=== PATIENT | male | born 1975 | race Caucasian/White ===

== ENCOUNTER 2019-04-16 15:35 | Emergency (ER) | payer OTHER ==
[2019-04-16] MEDS ORDERED: ONDANSETRON 4 MG TAB.RAPDIS PO ONE (16:26)
[2019-04-16] MEDS ORDERED: ACETAMINOPHEN 325 MG TABLET PO ONE (16:26)
[2019-04-16 17:29] LABS: A TYPE INFLUENZA AG NEGATIVE (NEGATIVE); B INFLUENZA AG NEGATIVE (NEGATIVE)
--- NOTE | 2019-04-16 18:49 | ER Document Report ---
HPI - HPI Time Seen by Provider: 04/16/19 16:22 Pain Level: Denies Notes: [id number]-stem-pjc male presents the ED with complaints of sore throat, chills, nausea, headache, myalgias started approximately 2 days ago. Worse with time, nothing makes better. Patient states he had negative flu shot this year. Has not tried any pwwu-tgo-pxixfly medications. Denies chest pain,palpitations, shortness of breath, dyspnea, , vomiting, diarrhea, abdominal pain, hematuria,blurred vision, double vision, loss of vision, speech changes, LH, dizziness, syncope, wheezing, neck pain,rash. - REPRODUCTIVE Reproductive: DENIES: : Past Medical History - General Information source: Patient - Social History Smoking Status: Unknown if Ever Smoked Family History: Reviewed & Not Pertinent Patient has suicidal ideation: No Patient has homicidal ideation: No Past Surgical History: Reports: Hx Orthopedic Surgery - right wrist - Immunizations Immunizations up to date: Yes Hx Diphtheria, Pertussis, Tetanus Vaccination: Yes Vertical Provider Document - CONSTITUTIONAL Agree With Documented VS: Yes Exam Limitations: No Limitations General Appearance: WD/WN Notes: PHYSICAL EXAMINATION:reviewed vital signs by RN GENERAL: Well-appearing, well-nourished and in no acute distress. HEAD: Atraumatic, normocephalic. EYES: Pupils equal round and reactive to light, extraocular movements intact, sclera anicteric, conjunctiva are normal. ENT: Nares patent, oropharynx with erythema and exudates. Moist mucous membranes. NECK: Normal range of motion, supple without lymphadenopathy LUNGS: Breath sounds clear to auscultation bilaterally and equal. No wheezes rales or rhonchi. HEART: Regular rate and rhythm without murmurs ABDOMEN: Soft, nontender, nondistended abdomen. No guarding, no rebound. No masses appreciated. Musculoskeletal: Normal range of motion, no pitting or edema. No cyanosis. NEUROLOGICAL: Cranial nerves grossly intact. Normal speech, normal gait. Normal sensory, motor exams PSYCH: Normal mood, normal affect. SKIN: Warm, Dry, normal turgor, no rashes or lesions noted. - INFECTION CONTROL TRAVEL OUTSIDE OF THE [place] IN LAST 30 DAYS: No Course - Re-evaluation Re-evalutation: 04/16/19 19:05 Presentation of several days of sore throat in an otherwise well-appearing patient. Rapid strep is negative, but clinical examination shows erythema with exudates and pharynx as well as symptomatic for exudative pharyngitis. history and exam are not consistent with a retropharyngeal abscess or peritonsillar abscess. Airway is patent. No difficulty handling oral secretions. Vitals within normal limits. Patient has been treated with an IM dose of penicillin. At this time will discharge with return precautions and follow-up recommendations. Verbal discharge instructions given a the bedside and opportunity for questions given. Medication warnings reviewed. Patient is in agreement with this plan and has verbalized understanding of return precautions and the need for primary care follow-up in the next 24-48 hours - Vital Signs Vital signs: Temp Pulse Resp BP Pulse Ox 98.8 F 98 16 150/95 H 99 04/16/19 15:39 04/16/19 15:39 04/16/19 15:39 04/16/19 15:39 04/16/19 15:39 Discharge - Discharge Clinical Impression: Exudative pharyngitis, Nausea Condition: Stable Disposition: HOME, SELF-CARE Instructions: Penicillin V K ([facility]), Strep Throat ([facility]), Sore Throat ([facility]) Additional Instructions: Continue toothbrush after 2 days do not reinfect himself, take medication as directed, increase oral hydration wash hands regularly. Do not share any utensils or cups with family members. Patient were to eat food prior to taking antibiotics can cause upset stomach. Yogurt daily to prevent loose stool. Return immediately for any new or worsening symptoms. Follow up with primary care provider, call tomorrow to make followup appointment. Prescriptions: Penicillin V Potassium [Penicillin Vk 500 mg Tablet] 500 mg PO BID #20 tablet Ondansetron [Zofran Odt 4 mg Tablet] 1 - 2 tab PO Q4H PRN #15 tab.rapdis PRN Reason: For Nausea/Vomiting Forms: Return to Work Referrals: TIFFANY GARCIA MD [ACTIVE STAFF] - Follow up as needed
[2019-04-16 19:12] VITALS: BP 122/96
== END 2019-04-16 19:22 | disposition home or self-care (01) ==
LOC: ER 15:35
DX: J02.9 Acute pharyngitis, unspecified (principal); R68.83 Chills (without fever); R11.0 Nausea; R51 Headache; M79.10 Myalgia, unspecified site
CPT/HCPCS: 99283; 87070; 87880; 87804; S0119

== ENCOUNTER 2019-07-19 12:50 | Emergency (ER) | payer OTHER, MEDICAID ==
[2019-07-19] MEDS ORDERED: IBUPROFEN 800 MG TABLET PO ONE (13:28)
--- NOTE | 2019-07-19 13:32 | ER Document Report ---
HPI - HPI Patient complains to provider of: Finger injury Time Seen by Provider: 07/19/19 13:24 Onset: Just prior to arrival Onset/Duration: Sudden Quality of pain: Sharp Pain Level: 5 Context: Patient states he was jumping on a trampoline and someone accidentally stepped on her landed on his left fifth finger. Patient with positive deformity to the finger. Patient is right-hand dominant. Associated Symptoms: Other - Left fifth finger injury Exacerbated by: Movement Relieved by: Denies Similar symptoms previously: No Recently seen / treated by doctor: No - ROS ROS below otherwise negative: Yes Systems Reviewed and Negative: Yes All other systems reviewed and negative - GASTROINTESTINAL Gastrointestinal: DENIES: Nausea - MUSCULOSKELETAL Musculoskeletal: REPORTS: Extremity pain, Swelling - DERM Skin Color: Normal Skin Problems: None Past Medical History - General Information source: Patient - Social History Smoking Status: Never Smoker Frequency of alcohol use: None Drug Abuse: None Occupation: None Lives with: Family Family History: Reviewed & Not Pertinent Patient has suicidal ideation: No Patient has homicidal ideation: No Pulmonary Medical History: Reports: Hx Sleep Apnea Endocrine Medical History: Reports: Hx Diabetes Mellitus Type 2 Psychiatric Medical History: Reports: Hx Depression, Hx Post Traumatic Stress Disorder Past Surgical History: Reports: Hx Orthopedic Surgery - right wrist - Immunizations Immunizations up to date: Yes Hx Diphtheria, Pertussis, Tetanus Vaccination: Yes Vertical Provider Document - CONSTITUTIONAL Agree With Documented VS: Yes Exam Limitations: No Limitations General Appearance: WD/WN, No Apparent Distress - INFECTION CONTROL TRAVEL OUTSIDE OF THE [place] IN LAST 30 DAYS: No - HEENT HEENT: Atraumatic, Normocephalic - NECK Neck: Normal Inspection - RESPIRATORY Respiratory: No Respiratory Distress - CARDIOVASCULAR Pulses: Normal: Radial Notes: Cap refill less than 3 seconds to the left fifth finger - MUSCULOSKELETAL/EXTREMETIES Musculoskeletal/Extremeties: Tender - Tenderness to left fifth finger with positive deformity, area exquisitely tender to touch - NEURO Level of Consciousness: Awake, Alert, Appropriate - DERM Integumentary: Warm, Dry Course - Re-evaluation Re-evalutation: 07/19/19 14:59 After patient was anesthetized with bupivacaine digital block finger was reduced with gentle traction. Post reduction film reviewed, finger appears to be in normal position at this time, patient tolerated procedure well. Will immobilize with finger splint and referred to orthopedics for further management. - Vital Signs Vital signs: Temp Pulse Resp BP Pulse Ox 98.1 F 80 16 144/84 H 97 07/19/19 13:22 07/19/19 13:22 07/19/19 13:22 07/19/19 13:22 07/19/19 13:22 - Diagnostic Test Radiology reviewed: Image reviewed, Reports reviewed Procedures - Immobilization Left 5th digit Pre-Proc Neuro Vasc Exam: Normal Immobilizer type: Finger splint (Static) Performed by: PCT Post-Proc Neuro Vasc Exam: Normal Alignment checked and good: Yes Discharge - Discharge Clinical Impression: Finger dislocation Qualifiers: Encounter type: initial encounter Qualified Code(s): S63.259A - Unspecified dislocation of unspecified finger, initial encounter Condition: Stable Disposition: HOME, SELF-CARE Instructions: Finger Dislocation ([facility]), Ice & Elevation ([facility]), Oral Narcotic Medication ([facility]), Temporary Splint ([facility]) Additional Instructions: Return immediately for any new or worsening symptoms Followup with your primary care provider, call tomorrow to make a followup appointment Follow-up with cardiovascular invasive specialist, call tomorrow for an appointment Prescriptions: Naproxen [Naprosyn 250 Nmg Tablet] 1 tab PO BID #14 tablet Referrals: AMBREEN VAZQUEZ PA-C [Primary Care Provider] - Follow up as needed HALIE LUCERO DO [ACTIVE STAFF] - Follow up as needed
--- NOTE | 2019-07-19 13:58 | RADIOLOGY REPORT (SQ) ---
EXAM DESCRIPTION: FINGER LEFT COMPLETED DATE/TIME: 07/19/2019 1:47 pm REASON FOR STUDY: L 5th finger injury, stepped on finger on tramp COMPARISON: None. NUMBER OF VIEWS: Three views. TECHNIQUE: AP, lateral, and oblique images acquired of the left fifth finger. LIMITATIONS: None. FINDINGS: MINERALIZATION: Normal. BONES: Posterior dislocation at the proximal interphalangeal joint. SOFT TISSUES: No foreign body. OTHER: No other significant finding. IMPRESSION: Posterior dislocation proximal 5th interphalangeal joint. TECHNICAL DOCUMENTATION: JOB ID: [id number] [employer]- All Rights Reserved Reading location - IP/workstation name: [email or web address]
[2019-07-19] MEDS ORDERED: BUPIVACAINE HCL 0.5 % INJ/PF 30 ML SDV INJ ONE (14:02)
[2019-07-19 15:06] VITALS: BP 153/74
--- NOTE | 2019-07-19 15:25 | RADIOLOGY REPORT (SQ) ---
EXAM DESCRIPTION: FINGER LEFT COMPLETED DATE/TIME: 07/19/2019 1:54 pm REASON FOR STUDY: post reduction film COMPARISON: Left 5th digit radiograph, same date NUMBER OF VIEWS: Three views. TECHNIQUE: AP, lateral, and oblique images acquired of the left 5th digit LIMITATIONS: None. FINDINGS: MINERALIZATION: Normal. BONES: No acute fracture or cortical disruption. There is now normal alignment at the 5th digit prox imal interphalangeal joint space. SOFT TISSUES: Soft tissue swelling at the 5th digit PIP joint. OTHER: No other significant finding. IMPRESSION: Interval reduction of the dislocation at the 5th digit proximal interphalangeal joint sp dean. No acute fracture or recurrent dislocation. Soft tissue swelling. TECHNICAL DOCUMENTATION: JOB ID: [id number] [employer]- All Rights Reserved Reading location - IP/workstation name: [email or web address]
== END 2019-07-19 15:30 | disposition home or self-care (01) ==
LOC: ER 12:50
DX: S63.287A Dislocation of proximal interphalangeal joint of left little finger, initial encounter (principal); W50.0XXA Accidental hit or strike by another person, initial encounter; Y93.44 Activity, trampolining; E11.9 Type 2 diabetes mellitus without complications
CPT/HCPCS: 99283

== ENCOUNTER 2020-01-01 07:59 | Day surgery (SDC) | payer OTHER, MEDICAID ==
[2020-01-01] MEDS ORDERED: PROPOFOL INJ 200 MG/20 ML VIAL IV ONE (08:13)
--- NOTE | 2020-01-01 10:40 | Operative Report ---
Operative Report DATE OF SURGERY: 01/01/20 Operative Report: The risks benefits and alternatives of the procedure explained to the patient in detail and informed consent is obtained.A GIF Olympus video scope was inserted into the patient's mouth and hypopharynx ,the esophagus is identified intubated and insufflated, the scope was then advanced through the esophagus stomach and duodenum ,retroflexion maneuver is done, the esophagus stomach and first and second portions of the duodenum examined PREOPERATIVE DIAGNOSIS: Balderas's esophagus POSTOPERATIVE DIAGNOSIS: Balderas's esophagus status post ablation. Residual food in stomach suggestive of gastroparesis. Gastritis status post biopsy OPERATION: EGD with radiofrequency ablation. EGD with biopsy SURGEON: CHRISTOPHER KOTHARI ANESTHESIA: LMAC TISSUE REMOVED OR ALTERED: As noted above. COMPLICATIONS: None. ESTIMATED BLOOD LOSS: None. INTRAOPERATIVE FINDINGS: As noted above. PROCEDURE: Patient tolerated the procedure well. No immediate postprocedure complications are noted. Patient is discharged in good condition. Discharge date 01/01/2020. Discharge diet: Regular. Discharge activity: Regular. 2 to 3-week follow-up to discuss findings. Patient is instructed call the office or proceed to the emergency room should there be any further problems or questions.
[2020-01-01 11:21] VITALS: BP 129/76
== END 2020-01-01 11:20 | disposition home or self-care (01) ==
LOC: END 07:59
PROVIDERS: ATTEND Internal Medicine Gastroenterology
DX: K22.719 Barrett's esophagus with dysplasia, unspecified (principal); T18.2XXA Foreign body in stomach, initial encounter; X58.XXXA Exposure to other specified factors, initial encounter; K29.50 Unspecified chronic gastritis without bleeding; I10 Essential (primary) hypertension; K21.9 Gastro-esophageal reflux disease without esophagitis; Z87.891 Personal history of nicotine dependence; K76.0 Fatty (change of) liver, not elsewhere classified; E11.65 Type 2 diabetes mellitus with hyperglycemia; Z79.4 Long term (current) use of insulin; Z03.818 Encounter for observation for suspected exposure to other biological agents ruled out; Z79.899 Other long term (current) drug therapy; Z88.5 Allergy status to narcotic agent
CPT/HCPCS: 43270; 82962; 87635; 88305 ×2; 00731; J2704; C9803; 731